=== PATIENT | female | born 1985 | race Caucasian/White ===

== ENCOUNTER 2017-07-16 12:15 | Emergency (ER) | payer OTHER ==
[~2017-07-16] VITALS: Ht 162.6 cm; Wt 64.4 kg
[2017-07-16 12:15] VITALS: TEMP 36.7; Ht 162.6 cm; Wt 64.4 kg
[~2017-07-16 12:15] MED LIST: ALBU1AER9; HYDR-4079 PO; LEVE250T PO; NXM/40 PO; PANT40TA PO; PRM625 PO; TOPI50TA16 PO; ZFRODT4 SL
[2017-07-16] MEDS ORDERED: HYDROmorphone INJ 0.5 MG/0.5 ML SYR IV STA ×3 (12:53→15:27)
[2017-07-16] MEDS ORDERED: ONDANSETRON INJ 2 MG/ML 2 ML VIAL IV STA (12:53)
--- NOTE | 2017-07-16 12:59 | EMERGENCY ROOM VISIT NOTE ---
History First contact with patient: 12:44 Chief Complaint: BACK PAIN Stated Complaint: BACK PAIN History of Present Illness The patient is a 32 year old female who presents to the Emergency Room via ambulance with complaints of "back pain". The patient states that there is a heavy patient at her work, and she and another individual have been trying to help the patient over the past 2 weeks but her back has been experiencing pain. She states that it has been progressing, and yesterday while at home she was trying to move furniture and made this worse. 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 She denies any incontinence of bowel or bladder, but does note it is difficult to urinate. She denies chance of noting she's had a hysterectomy. She denies any abdominal pain. She denies any fevers, chills, chest pain or shortness of breath. She feels as though the left leg is weak and is going to give out on her if she tries to ambulate and notes this is worsening. [facility] revealed chronic appearing findings of L2 and L4 as well as incidental spina bifida occulta at S1. Review of Systems A complete 10-point Review of Systems was discussed with the patient, with pertinent positives and negatives listed in the History of Present Illness. All remaining Review of Systems questions can be considered negative unless otherwise specified. Past Medical/Surgical History No pertinent Family History No pertinent. Social History Smoking Status: Current Every Day Smoker Pt. lives locally with family Current/Historical Medications Scheduled Cyclobenzaprine Hcl (Flexeril), 5 MG PO TID Hydroxyzine Hcl (Atarax), 1 TAB PO TID Levetiracetam (Keppra), 250 MG PO BID Multivitamin (Multivitamin), 1 TAB PO DAILY Scheduled PRN Lorazepam (Lorazepam), 1 TAB PO TID PRN for Anxiety Ondansetron Hcl (Zofran), 4 MG PO for Nausea Oxycodone Ir (Roxicodone Ir), 1-2 TAB PO Q4H PRN for Pain Physical Exam Vital Signs Date Time Temp Pulse Resp B/P (MAP) Pulse Ox O2 Delivery O2 Flow Rate FiO2 07/16/17 17:47 70 18 120/71 98 07/16/17 15:55 65 20 126/72 98 Room Air 07/16/17 14:55 76 20 130/77 98 Room Air 07/16/17 12:15 36.7 70 18 134/86 100 Room Air Physical Exam VITAL SIGNS - Vital signs and nursing notes were reviewed. Stable. GENERAL - 32-year-old female appearing her stated age who is in no acute distress. Communicates well with provider and answers questions appropriately. SKIN - Without rashes. No petechial rashes. HEAD - NC/AT. EYES - Sclera anicteric. EARS - No deformities of external structures noted on gross examination bilaterally. NOSE - Midline and without cyanosis. No epistaxis or purulent drainage noted. MOUTH/OROPHARYNX - Without perioral cyanosis. NECK - Neck with FROM. Supple to palpation. No nuchal rigidity. LUNGS - Chest wall symmetric without accessory muscle use, intercostals retractions, or central cyanosis. Normal vesicular breath sounds CTA B/L. No wheezes, rales, or rhonchi appreciated. CARDIAC - RRR with S1/S2. No murmur, rubs, or gallops appreciated. ABDOMEN - Abdominal contour normal without pulsations or visible masses. BS normoactive all four quadrants. No tenderness, palpable masses, hepatosplenomegaly, or ascites noted. EXTREMITIES - No clubbing or peripheral cyanosis. No pretibial edema present. Strength appears to be diminished on the left leg compared to the right. Both are markedly decreased inability to actively extend. Reflexes are mildly appreciated. Palpation of the lumbar and sacral region elicits minimal reproducible tenderness, but patient's range of motion of the spine is severely decreased secondary to her pain. NEUROLOGIC - Cranial nerves II through XII grossly intact. Sensory intact to light touch throughout. PSYCH - A&O, and cooperates fully with examiner. Pt is very pleasant and interacts well with examiner. Medical Decision & Procedures ER Provider Diagnostic Interpretation: LUMBAR SPINE W/O CONTRAST CLINICAL HISTORY: 32 years-old Female with Low back pain and L leg numb s/p heavy lifting. Cannot ambulate.. Acute low back pain with left leg numbness COMPARISON: None available. TECHNIQUE: Multiplanar, multi sequence MRI of the lumbar spine was performed without intravenous contrast. FINDINGS: The large [id number]-[id number]-apey client engagement specialist localizer images demonstrate no gross abnormality of the abdomen or pelvis. Indeterminate 8 mm T2 hyperintense lesion of the superior pole left kidney medially suggests cyst. There is straightening of the normal lumbar lordosis. No focal bone marrow edema, fracture or marrow replacing process. Alignment is satisfactory. Moderate intervertebral disc space narrowing with disc desiccation at L3-L4 as below. Conus medullaris terminates at L1. Signal within the cord is within normal limits. T12-L1: No central canal or neural foraminal stenosis. L1-L2: No central canal or neural foraminal stenosis. L2-L3: Minimal posterior intervertebral disc space narrowing without central canal or neural foraminal stenosis. L3-L4: Moderate intervertebral disc space narrowing with circumferential annular disc bulge, and small annular fissure which causes mild central canal and mild bilateral inferior foraminal narrowing. L4-L5: Mild posterior intervertebral disc space narrowing with broad-based posterior disc bulge which flattens the ventral thecal sac. No significant central canal narrowing. Mild inferior bilateral foraminal narrowing. L5-S1: Small broad-based posterior disc bulge flattens the ventral thecal sac without significant central canal or foraminal narrowing. IMPRESSION: 1. Moderate intervertebral disc space narrowing with circumferential annular disc bulge and small central annular fissure at L3-L4 causes mild central canal and mild bilateral foraminal narrowing. 2. Minimal discogenic degenerative changes at L4-L5 and L5-S1 without significant central canal narrowing. There is mild inferior bilateral foraminal stenosis at L4-L5. 3. No acute fracture or focal bone marrow edema. The above report was generated using voice recognition software. It may contain grammatical, syntax or spelling errors. Electronically signed by: Martell Westbrook M.D. 07/16/2017 3:50 PM Dictated Date/Time: 07/16/2017 3:46 PM Laboratory Results 07/16/17 13:16 Red Blood Count 3.83, Mean Corpuscular Volume 85.6, Mean Corpuscular Hemoglobin 27.4, Mean Corpuscular Hemoglobin Concent 32.0, Mean Platelet Volume 9.6, Neutrophils (%) (Auto) 54.2, Lymphocytes (%) (Auto) 38.8, Monocytes (%) (Auto) 4.7, Eosinophils (%) (Auto) 1.3, Basophils (%) (Auto) 0.8, Neutrophils # (Auto) 3.36, Lymphocytes # (Auto) 2.40, Monocytes # (Auto) 0.29, Eosinophils # (Auto) 0.08, Basophils # (Auto) 0.05 07/16/17 13:16 Test 07/16/17 13:16 White Blood Count 6.19 K/uL (4.8-10.8) Red Blood Count 3.83 M/uL (4.2-5.4) Hemoglobin 10.5 g/dL (12.0-16.0) Hematocrit 32.8 % (37-47) Mean Corpuscular Volume 85.6 fL (80-100) Mean Corpuscular Hemoglobin 27.4 pg (25-34) Mean Corpuscular Hemoglobin Concent 32.0 g/dl (32-36) Platelet Count 260 K/uL (130-400) Mean Platelet Volume 9.6 fL (7.4-10.4) Neutrophils (%) (Auto) 54.2 % Lymphocytes (%) (Auto) 38.8 % Monocytes (%) (Auto) 4.7 % Eosinophils (%) (Auto) 1.3 % Basophils (%) (Auto) 0.8 % Neutrophils # (Auto) 3.36 K/uL (1.4-6.5) Lymphocytes # (Auto) 2.40 K/uL (1.2-3.4) Monocytes # (Auto) 0.29 K/uL (0.11-0.59) Eosinophils # (Auto) 0.08 K/uL (0-0.5) Basophils # (Auto) 0.05 K/uL (0-0.2) RDW Standard Deviation 46.2 fL (36.4-46.3) RDW Coefficient of Variation 14.7 % (11.5-14.5) Immature Granulocyte % (Auto) 0.2 % Immature Granulocyte # (Auto) 0.01 K/uL (0.00-0.02) Anion Gap 8.0 mmol/L (3-11) Est Creatinine Clear Calc Drug Dose 134.3 ml/min Estimated GFR () 145.4 Estimated GFR (Non- 125.5 BUN/Creatinine Ratio 11.8 (10-20) Calcium Level 9.1 mg/dl (8.5-10.1) Total Bilirubin 0.3 mg/dl (0.2-1) Aspartate Amino Transf (AST/SGOT) 28 U/L (15-37) Alanine Aminotransferase (ALT/SGPT) 25 U/L (12-78) Alkaline Phosphatase 69 U/L (45-117) Total Protein 7.3 gm/dl (6.4-8.2) Albumin 4.1 gm/dl (3.4-5.0) Globulin 3.2 gm/dl (2.5-4.0) Albumin/Globulin Ratio 1.3 (0.9-2) Medications Administered Medications (Trade) Dose Ordered Sig/Saritha Route Start Time Stop Time Status Last Admin Dose Admin Hydromorphone HCl (Dilaudid Inj) 0.5 mg NOW STAT IV 07/16/17 12:53 07/16/17 12:55 DC 07/16/17 13:10 0.5 MG Ondansetron HCl (Zofran Inj) 4 mg NOW STAT IV 07/16/17 12:53 07/16/17 12:55 DC 07/16/17 13:09 4 MG Lorazepam (Ativan Inj) 1 mg NOW STAT IV 07/16/17 14:00 07/16/17 14:05 DC 07/16/17 14:53 1 MG Hydromorphone HCl (Dilaudid Inj) 0.5 mg NOW STAT IV 07/16/17 14:49 07/16/17 14:50 DC 07/16/17 14:54 0.5 MG Hydromorphone HCl (Dilaudid Inj) 0.5 mg NOW STAT IV 07/16/17 15:27 07/16/17 15:29 DC 07/16/17 15:59 0.5 MG Lorazepam (Ativan Inj) 2 mg STK-MED ONCE .ROUTE 07/16/17 17:19 07/16/17 17:20 DC 07/16/17 17:22 0.5 MG Medical Decision Patient was seen and evaluated as above. She presents to us today with back pain via EMS. Then at the versus risk of obtaining MRI was discussed, and the decision was made to do so secondary to her leg weakness, and ability to ambulate. MRI results as above. Patient's blood work exhibits no concern leukocytosis. Anemia with hemoglobin of 10.5. Patient notes this is actually improved. Metabolic panel reveals chloride slightly high at 109, no evidence of kidney or liver failure. She was given Dilaudid 0.53. She was given Ativan IV as well for her anxiety and premedication prior to MRI. She noted slight improvement in her pain. She was offered inpatient management secondary to her level of pain, but I felt that there was no emergent process or/surgical process with the MRI rather this will need conservative management. She declined admission, and notes that she would like to go home. She was given OxyIR and Flexeril. She was given John wrap for support. She at this time will be discharged home. She was educated upon importance of follow-up, worrisome symptoms which to return, had questions of her discharge, and was discharged home in good condition. P D MP reveals no concerning findings. In evaluation treatment this patient following differential diagnoses were entertained: Cauda equina syndrome, herniated disc, fracture, dislocation, drug- seeking behavior, among others. Impression Primary Impression: Bulging disc Additional Impression: Anemia Departure Information Dispostion Home / Self-Care Condition GOOD Prescriptions Cyclobenzaprine Hcl (FLEXERIL) 5 Mg Tab 5 MG PO TID for 5 Days, #15 TAB PRN Prov: Farhat Tam PA-C 07/16/17 Oxycodone Ir (Roxicodone Ir) 5 Mg Tab 1-2 TAB PO Q4H Y for Pain, #15 TAB For Initial Treatment Prov: Farhat Tam PA-C 07/16/17 Referrals No Doctor, Assigned (PCP) Rogelio Lopez, DO Patient Instructions [facility] Additional Instructions You have been treated in the Emergency Department for Back Pain. You have received pain medicine in the emergency department which impairs your ability to operate a vehicle. It is illegal for you to drive after receiving these medicines. You have been prescribed Oxy IR to be used for pain control. This is a narcotic medication. You cannot drive or consume alcohol while on this medicine. This medicine should only be used for pain that cannot be controlled with over-the- counter pain medicines. You have been prescribed Flexeril (cyclobenzaprine) 1-2 tabs orally, three times per day. Do NOT exceed 30 mg (6 tabs) per day. Take your first dose at bedtime as it can make you drowsy. Always take all medications as prescribed. For pain control, you can use the following [id number] medicines: - Regular strength (325mg/tab) Tylenol (acetaminophen) 2 tabs every 4-6 hours as needed. Do not exceed 12 tablets in a 24 hour period. Avoid taking more than 3 grams (3000 mg) of Tylenol per day. This includes any other sources of acetaminophen you may take on a regular basis. If this is an acute injury, ice can be applied to the area of pain for the first 3 days to help decrease pain and inflammation. After the first 3 days, a heating pad can be used over the area for continued soothing relief. You should schedule a follow-up appointment in 2-3 days with your Primary Care Provider for further evaluation and treatment of your back pain. Return to the Emergency Department if your current symptoms worsen despite treatment course outlined above, or if you develop any of the following symptoms : intractable pain despite aforementioned treatment course, loss of control of your bowel or bladder, numbness or tingling in your groin, or development of a fever. LUMBAR SPINE W/O CONTRAST CLINICAL HISTORY: 32 years-old Female with Low back pain and L leg numb s/p heavy lifting. Cannot ambulate.. Acute low back pain with left leg numbness COMPARISON: None available. TECHNIQUE: Multiplanar, multi sequence MRI of the lumbar spine was performed without intravenous contrast. FINDINGS: The large phzcy-uh-wjlk client engagement specialist localizer images demonstrate no gross abnormality of the abdomen or pelvis. Indeterminate 8 mm T2 hyperintense lesion of the superior pole left kidney medially suggests cyst. There is straightening of the normal lumbar lordosis. No focal bone marrow edema, fracture or marrow replacing process. Alignment is satisfactory. Moderate intervertebral disc space narrowing with disc desiccation at L3-L4 as below. Conus medullaris terminates at L1. Signal within the cord is within normal limits. T12-L1: No central canal or neural foraminal stenosis. L1-L2: No central canal or neural foraminal stenosis. L2-L3: Minimal posterior intervertebral disc space narrowing without central canal or neural foraminal stenosis. L3-L4: Moderate intervertebral disc space narrowing with circumferential annular disc bulge, and small annular fissure which causes mild central canal and mild bilateral inferior foraminal narrowing. L4-L5: Mild posterior intervertebral disc space narrowing with broad-based posterior disc bulge which flattens the ventral thecal sac. No significant central canal narrowing. Mild inferior bilateral foraminal narrowing. L5-S1: Small broad-based posterior disc bulge flattens the ventral thecal sac without significant central canal or foraminal narrowing. IMPRESSION: 1. Moderate intervertebral disc space narrowing with circumferential annular disc bulge and small central annular fissure at L3-L4 causes mild central canal and mild bilateral foraminal narrowing. 2. Minimal discogenic degenerative changes at L4-L5 and L5-S1 without significant central canal narrowing. There is mild inferior bilateral foraminal stenosis at L4-L5. 3. No acute fracture or focal bone marrow edema. The above report was generated using voice recognition software. It may contain grammatical, syntax or spelling errors. Electronically signed by: Martell Westbrook M.D. 07/16/2017 3:50 PM Dictated Date/Time: 07/16/2017 3:46 PM Problem Qualifiers
[2017-07-16] MEDS ORDERED: ONDA4TAB46 PO (13:24)
[2017-07-16] MEDS ORDERED: HYDR-3126 PO (13:24)
[2017-07-16] MEDS ORDERED: LORA0.5T12 PO (13:24)
[2017-07-16] MEDS ORDERED: MULT-506 PO (13:24)
[2017-07-16 13:37] LABS: BASO % 0.8 %; BASO ABS # 0.05 K/uL (0-0.2); COMPLETE YES; EOS % 1.3 %; HEMATOCRIT 32.8 % (37-47); IG% 0.2 %; LYMPH % 38.8 %; MEAN CELL VOLUME 85.6 fL (80-100); MEAN CORPUSCULAR HEMOGLOBIN 27.4 pg (25-34); MEAN PLATELET VOLUME 9.6 fL (7.4-10.4); MONO % 4.7 %; NEUT % 54.2 %; PLATELET COUNT 260 K/uL (130-400); RED BLOOD COUNT 3.83 M/uL (4.2-5.4); WHITE BLOOD COUNT 6.19 K/uL (4.8-10.8)
[2017-07-16 13:46] LABS: BUN/CREATININE RATIO 11.8 (10-20); CALCIUM 9.1 mg/dl (8.5-10.1); CREATININE 0.51 mg/dl (0.60-1.20); POTASSIUM 3.5 mmol/L (3.5-5.1)
[2017-07-16 13:49] LABS: ALB/GLOB RATIO 1.3 (0.9-2)
[2017-07-16] MEDS ORDERED: LORAZEPAM 2 MG/ML 1 ML VIAL IV STA (14:00)
--- NOTE | 2017-07-16 15:52 | DIAGNOSTIC IMAGING REPORT ---
LUMBAR SPINE W/O CONTRAST CLINICAL HISTORY: 32 years-old Female with Low back pain and L leg numb s/p heavy lifting. Cannot ambulate.. Acute low back pain with left leg numbness COMPARISON: None available. TECHNIQUE: Multiplanar, multi sequence MRI of the lumbar spine was performed without intravenous contrast. FINDINGS: The large ehnat-yc-uxfc school inspector localizer images demonstrate no gross abnormality of the abdomen or pelvis. Indeterminate 8 mm T2 hyperintense lesion of the superior pole left kidney medially suggests cyst. There is straightening of the normal lumbar lordosis. No focal bone marrow edema, fracture or marrow replacing process. Alignment is satisfactory. Moderate intervertebral disc space narrowing with disc desiccation at L3-L4 as below. Conus medullaris terminates at L1. Signal within the cord is within normal limits. T12-L1: No central canal or neural foraminal stenosis. L1-L2: No central canal or neural foraminal stenosis. L2-L3: Minimal posterior intervertebral disc space narrowing without central canal or neural foraminal stenosis. L3-L4: Moderate intervertebral disc space narrowing with circumferential annular disc bulge, and small annular fissure which causes mild central canal and mild bilateral inferior foraminal narrowing. L4-L5: Mild posterior intervertebral disc space narrowing with broad-based posterior disc bulge which flattens the ventral thecal sac. No significant central canal narrowing. Mild inferior bilateral foraminal narrowing. L5-S1: Small broad-based posterior disc bulge flattens the ventral thecal sac without significant central canal or foraminal narrowing. IMPRESSION: 1. Moderate intervertebral disc space narrowing with circumferential annular disc bulge and small central annular fissure at L3-L4 causes mild central canal and mild bilateral foraminal narrowing. 2. Minimal discogenic degenerative changes at L4-L5 and L5-S1 without significant central canal narrowing. There is mild inferior bilateral foraminal stenosis at L4-L5. 3. No acute fracture or focal bone marrow edema. The above report was generated using voice recognition software. It may contain grammatical, syntax or spelling errors. Electronically signed by: Martell Westbrook M.D. 07/16/2017 3:50 PM Dictated Date/Time: 07/16/2017 3:46 PM
[2017-07-16] MEDS ORDERED: LORAZEPAM INJ 0.5 MG in SYRINGE 0.25 ML IV STA (16:38)
[2017-07-16] MEDS ORDERED: OXYC1TAB3 PO (17:02)
[2017-07-16] MEDS ORDERED: CYCL5TAB PO (17:02)
[2017-07-16] MEDS ORDERED: LORAZEPAM 2 MG/ML 1 ML VIAL ONE (17:19)
[2017-07-16 17:47] VITALS: BP 120/71; PULSE 70; O2SAT 98
[2017-07-23] MEDS ORDERED: NRN100 PO (10:32)
== END 2017-07-16 17:49 | disposition home or self-care (01) ==
LOC: EDBD 12:15 → C.EDC 12:18
DX: M99.73 Connective tissue and disc stenosis of intervertebral foramina of lumbar region (principal); M99.74 Connective tissue and disc stenosis of intervertebral foramina of sacral region; D64.9 Anemia, unspecified; F17.200 Nicotine dependence, unspecified, uncomplicated